=== PATIENT | female | born 1945 | race Hispanic/Latino ===

== ENCOUNTER 2018-05-19 12:58 | Emergency (ER) | payer OTHER ==
[2018-05-19 13:56] LABS: Absolute Lymphocytes (CBC) 0.9 K/uL (0.7-4.9); Absolute Monocytes 0.3 K/uL (0.1-1.3); Absolute Neutrophil 5.1 K/uL (1.8-8.0); Basophils % 0.4 % (0-1.3); Eosinophils % 1.5 % (0-4.4); Hematocrit 27.8 % (36.0-45.0); Lymphocytes % 14.1 % (15.3-44.8); MCH 29.8 pg (27.0-35.0); MCV 90.1 fL (80-100); MPV 7.9 fL (7.6-11.3); RBC Red Blood Cell Count 3.09 M/uL (3.86-4.86)
[2018-05-19 14:05] LABS: Protime INR 1.04
[2018-05-19 14:17] LABS: ALT/SGPT 14 U/L (12-78); AST/SGOT 17 U/L (15-37); Albumin 3.3 g/dL (3.4-5.0); Alkaline Phosphatase 101 U/L (45-117); BUN Blood Urea Nitrogen 33 mg/dL (7-18); Bicarbonate 31 mmol/L (21-32); Bilirubin Direct 0.1 mg/dL (0-0.2); Bilirubin Total 0.3 mg/dL (0.2-1.0); CKMB Creatine Kinase MB < 1.0 ng/mL (0.3-3.6); Creatine Phosphokinase 67 U/L (26-192); Glucose Level 163 mg/dL (74-106); Magnesium 1.9 mg/dL (1.8-2.4); NT PRO-BNP 1529 pg/mL (<125); Potassium 4.3 mmol/L (3.5-5.1); Protein, Total 7.3 g/dL (6.4-8.2); Sodium Level 142 mmol/L (136-145)
--- NOTE | 2018-05-19 14:31 | RAD REPORT ---
EXAM DESCRIPTION: Cristopher Single View05/19/2018 2:02 pm CLINICAL HISTORY: Chest pain COMPARISON: none FINDINGS: The lungs appear clear of acute infiltrate. The heart is borderline enlarged IMPRESSION: No acute abnormalities displayed
--- NOTE | 2018-05-19 14:39 | EKG ---
Test Date: 2018-05-19 Test Time: 13:50:09 Biological Technical Officer: LUCERO MEASUREMENT RESULTS: Intervals: Rate: 92 SD: 206 QRSD: 90 QT: 378 QTc: 467 [place]: P: 61 SD: 206 QRS: 0 T: 46 INTERPRETIVE STATEMENTS: Normal sinus rhythm Normal ECG No previous ECG available for comparison Electronically Signed On 05-19-18 14:39:16 CDT by Domo Arnold
--- NOTE | 2018-05-19 16:26 | EDPHYS ---
Physician Documentation [facility] Name: Oneyda Ely Age: 72 yrs Sex: Female : 1945 Arrival Date: 05/19/2018 Time: 12:59 Bed 14 Private MD: ED Physician Rigoberto Tomlinson HPI: 05/19 14:44 This 72 yrs old Female presents to ER via EMS with complaints of Chest Pain > jr8 32 y/o. 14:44 The patient or guardian reports chest pain that is located primarily in the substernal jr8 area. Onset: acutely, today. The pain does not radiate. Associated signs and symptoms: The patient has no apparent associated signs or symptoms. The chest pain is described as a pressure. Duration: The patient or guardian reports a single episode, that is now resolved. Modifying factors: The symptoms are alleviated by nothing. the symptoms are aggravated by nothing. Severity of pain: At its worst the pain was moderate in the emergency department the pain has resolved. The patient has not experienced similar symptoms in the past. The patient has been recently seen by a physician:. Patient had outpatient endoscopy today. Post procedure after waking up had complained of chest pain. Patient feels better now. History of [facility] with stents in past . Historical: - Allergies: 13:06 Iodine; mb3 - Immunization history:: Adult Immunizations up to date. - Social history:: Smoking status: Patient/guardian denies using tobacco, the patient reports quitting approximately 3 years ago. - Ebola Screening: : Patient denies travel to an Ebola-affected area in the 21 days before illness onset No symptoms or risks identified at this time. ROS: 14:44 Eyes: Negative for injury, pain, redness, and discharge, ENT: Negative for injury, jr8 pain, and discharge, Neck: Negative for injury, pain, and swelling, Respiratory: Negative for shortness of breath, cough, wheezing, and pleuritic chest pain, Abdomen/GI: Negative for abdominal pain, nausea, vomiting, diarrhea, and constipation, Back: Negative for injury and pain, MS/Extremity: Negative for injury and deformity, Skin: Negative for injury, rash, and discoloration, Neuro: Negative for headache, weakness, numbness, tingling, and seizure. 14:44 Cardiovascular: Positive for chest pain, Negative for edema, orthopnea, palpitations, paroxysmal nocturnal dyspnea. Exam: 14:44 Eyes: Pupils equal round and reactive to light, extra-ocular motions intact. Lids and jr8 lashes normal. Conjunctiva and sclera are non-icteric and not injected. Cornea within normal limits. Periorbital areas with no swelling, redness, or edema. ENT: Nares patent. No nasal discharge, no septal abnormalities noted. Tympanic membranes are normal and external auditory canals are clear. Oropharynx with no redness, swelling, or masses, exudates, or evidence of obstruction, uvula midline. Mucous membranes moist. Neck: Trachea midline, no thyromegaly or masses palpated, and no cervical lymphadenopathy. Supple, full range of motion without nuchal rigidity, or vertebral point tenderness. No Meningismus. Cardiovascular: Regular rate and rhythm with a normal S1 and S2. No gallops, murmurs, or rubs. Normal PMI, no JVD. No pulse deficits. Respiratory: Lungs have equal breath sounds bilaterally, clear to auscultation and percussion. No rales, rhonchi or wheezes noted. No increased work of breathing, no retractions or nasal flaring. Abdomen/GI: Soft, non-tender, with normal bowel sounds. No distension or tympany. No guarding or rebound. No evidence of tenderness throughout. Back: No spinal tenderness. No costovertebral tenderness. Full range of motion. Skin: Warm, dry with normal turgor. Normal color with no rashes, no lesions, and no evidence of cellulitis. MS/ Extremity: Pulses equal, no cyanosis. Neurovascular intact. Full, normal range of motion. Neuro: Awake and alert, GCS 15, oriented to person, place, time, and situation. Cranial nerves II-XII grossly intact. Motor strength 5/5 in all extremities. Sensory grossly intact. Cerebellar exam normal. Normal gait. Vital Signs: 13:10 BP 178 / 69; Pulse 92; Resp 18; Temp 96.8; Pulse Ox 96% on R/A; Weight 55.34 kg; Height mb3 5 ft. 1 in. (154.94 cm); Pain 0/10; 13:50 BP 164 / 57; Pulse 97; Resp 18; Pulse Ox 100% on R/A; mb3 15:40 BP 156 / 61; Pulse 93; Resp 18; Pulse Ox 100% on R/A; mb3 16:46 BP 156 / 60; Pulse 94; Resp 18; Pulse Ox 94% on R/A; mb3 13:10 Body Mass Index 23.05 (55.34 kg, 154.94 cm) mb3 MDM: 13:41 Patient medically screened. jr8 14:44 Differential diagnosis: acute myocardial infarction, acute pericarditis, chest wall jr8 pain, esophagitis, gastroesophageal reflux disease (GERD), Fe-Meier syndrome, pancreatitis, pneumonia, pneumothorax, pulmonary embolus, thoracic aortic disection, perforated esophagus. Data reviewed: vital signs, nurses notes, lab test result(s), EKG, radiologic studies, plain films. 16:24 Counseling: I had a detailed discussion with the patient and/or guardian regarding: the jr8 historical points, exam findings, and any diagnostic results supporting the discharge/admit diagnosis, lab results, radiology results, the need for outpatient follow up, a family practitioner, to return to the emergency department if symptoms worsen or persist or if there are any questions or concerns that arise at home. ED course: Patient still remains chest pain free. Second troponin negative. Will send home to f/u with PCP . 05/19 13:33 Order name: Basic Metabolic Panel; Complete Time: 14:37 w 05/19 13:33 Order name: CBC with Diff; Complete Time: 14:06 w 05/19 13:33 Order name: Ckmb; Complete Time: 14:37 w 05/19 13:33 Order name: CPK; Complete Time: 14:37 snw 05/19 13:33 Order name: LFT's; Complete Time: 14:37 w 05/19 13:33 Order name: Magnesium; Complete Time: 14:37 snw 05/19 13:33 Order name: NT PRO-BNP; Complete Time: 14:37 snw 05/19 13:33 Order name: PT-INR; Complete Time: 14:37 snw 05/19 13:33 Order name: Ptt, Activated; Complete Time: 14:37 snw 05/19 13:33 Order name: Troponin (emerg Dept Use Only); Complete Time: 14:37 snw 05/19 13:33 Order name: Procalcitonin; Complete Time: 14:37 snw 05/19 13:33 Order name: Lactate; Complete Time: 14:37 snw 05/19 13:33 Order name: Blood Culture Adult (2) [facility] 05/19 15:40 Order name: Troponin (emerg Dept Use Only); Complete Time: 16:24 05/19 13:33 Order name: XRAY Chest (1 view); Complete Time: 14:37 [facility] 05/19 13:33 Order name: EKG; Complete Time: 13:33 [facility] 05/19 13:33 Order name: Cardiac monitoring; Complete Time: 13:36 [facility] 05/19 13:33 Order name: EKG - Nurse/Tech; Complete Time: 13:49 [facility] 05/19 13:33 Order name: IV Saline Lock; Complete Time: 13:36 [facility] 05/19 13:33 Order name: Labs collected and sent; Complete Time: 13:36 [facility] 05/19 13:33 Order name: O2 Per Protocol; Complete Time: 13:35 [facility] 05/19 13:33 Order name: O2 Sat Monitoring; Complete Time: 13:35 [facility] 05/19 13:33 Order name: Urine Dipstick-Ancillary (obtain specimen) 05/19 13:33 Order name: VS Recheck: q 30 min; Complete Time: 13:35 snw Administered Medications: No medications were administered Disposition: 05/20 09:44 Co-signature as Attending Physician, Rigoberto Tomlinson MD I agree with the assessment and renae plan of care. Disposition: 05/19/18 16:25 Discharged to Home. Impression: Chest pain, unspecified. - Condition is Stable. - Discharge Instructions: Nonspecific Chest Pain. - Medication Reconciliation Form, Thank You Letter, Antibiotic Education, Prescription Opioid Use form. - Follow up: Private Physician; When: 1 - 2 days; Reason: If symptoms return, Recheck today's complaints, Continuance of care, Re-evaluation by your physician. - Problem is new. - Symptoms are resolved. Signatures: Dispatcher [employer] Rigoberto Tran MD MD cha Therrien, Shelly, CADASTRAL ENGINEER-C CADASTRAL ENGINEER-Csnw Victor Hugo Thomas PA PA jr8 Yifan Rogel, JERI RN mb3 Corrections: (The following items were deleted from the chart) 05/19 16:47 16:25 05/19/2018 16:25 Discharged to Home. Impression: Chest pain, unspecified. mb3 Condition is Stable. Forms are Medication Reconciliation Form, Thank You Letter, Antibiotic Education, Prescription Opioid Use. Follow up: Private Physician; When: 1 - 2 days; Reason: If symptoms return, Recheck today's complaints, Continuance of care, Re-evaluation by your physician. Problem is new. Symptoms are resolved. jr8
--- NOTE | 2018-05-19 16:26 | ER ---
Nurse's Notes [facility] Name: Oneyda Ely Age: 72 yrs Sex: Female : 1945 Arrival Date: 05/19/2018 Time: 12:59 Bed 14 Private MD: Diagnosis: Chest pain, unspecified Presentation: 05/19 13:00 Presenting complaint: EMS states: Brought in from next door, pt had endoscopy and was mb3 in recovery. Started having chest pain, ems was called and brought pt here. During the endoscopy pt was given labelalol, esmolol, levaquin, solumedrol and morphine during procedure. had some vital sign problems and was given epi also. EMS adm nitro SL on the way here. Transition of care: patient was received from another setting of care (ambulatory specialty care practice). Onset of symptoms was May 19, 2018 at 12:00. Risk Assessment: Do you want to hurt yourself or someone else? Patient reports no desire to harm self or others. Initial Sepsis Screen: Does the patient meet any 2 criteria? No. Patient's initial sepsis screen is negative. Does the patient have a suspected source of infection? No. Patient's initial sepsis screen is negative. Care prior to arrival: Medication(s) given: ASA, 81 mg, x 1, Nitroglycerin, 0.4 mg SL Labetalol 20 mg, Esmolol 40mg, Levaquin 500 mg, solumedrol 20 mg iv, morphine 4 mg IV, IV initiated. 22 GA, in the right antecubital area, Oxygen administered. via nasal cannula. 13:00 Method Of Arrival: EMS: [facility] mb3 13:00 Acuity: GRISELDA 3 mb3 Triage Assessment: 13:07 General: Appears in no apparent distress. comfortable, Behavior is calm, cooperative, mb3 appropriate for age. Pain: Denies pain. EENT: No signs and/or symptoms were reported regarding the EENT system. Neuro: No deficits noted. Level of Consciousness is awake, alert, obeys commands, Oriented to person, place, time, situation, Appropriate for age. Cardiovascular: Reports Did have chest pain but it has subsided at this time. Heart tones present Capillary refill < 3 seconds Patient's skin is warm and dry. Pulses are all present. Rhythm is sinus rhythm. Respiratory: Airway is patent Respiratory effort is even, unlabored, Respiratory pattern is regular, Breath sounds are clear bilaterally. GI: No signs and/or symptoms were reported involving the gastrointestinal system. : No signs and/or symptoms were reported regarding the genitourinary system. Derm: No signs and/or symptoms reported regarding the dermatologic system. Musculoskeletal: No deficits noted. No signs and/or symptoms reported regarding the musculoskeletal system. Historical: - Allergies: 13:06 Iodine; mb3 - Immunization history:: Adult Immunizations up to date. - Social history:: Smoking status: Patient/guardian denies using tobacco, the patient reports quitting approximately 3 years ago. - Ebola Screening: : Patient denies travel to an Ebola-affected area in the 21 days before illness onset No symptoms or risks identified at this time. Screenin:53 Abuse screen: Denies threats or abuse. Nutritional screening: No deficits noted. mb3 Tuberculosis screening: No symptoms or risk factors identified. Fall Risk None identified. Assessment: 13:50 Reassessment: see triage assessment. General: Appears in no apparent distress. mb3 comfortable, Behavior is calm, cooperative, appropriate for age. Pain: Denies pain. Pain does not radiate. Pain began 2 hours ago. 15:40 Reassessment: Patient appears in no apparent distress at this time. Patient and/or mb3 family updated on plan of care and expected duration. Pain level reassessed. Patient is alert, oriented x 3, equal unlabored respirations, skin warm/dry/pink. Patient denies pain at this time. Vital Signs: 13:10 BP 178 / 69; Pulse 92; Resp 18; Temp 96.8; Pulse Ox 96% on R/A; Weight 55.34 kg; Height mb3 5 ft. 1 in. (154.94 cm); Pain 0/10; 13:50 BP 164 / 57; Pulse 97; Resp 18; Pulse Ox 100% on R/A; mb3 15:40 BP 156 / 61; Pulse 93; Resp 18; Pulse Ox 100% on R/A; mb3 16:46 BP 156 / 60; Pulse 94; Resp 18; Pulse Ox 94% on R/A; mb3 13:10 Body Mass Index 23.05 (55.34 kg, 154.94 cm) mb3 ED Course: 12:59 Patient arrived in ED. mb3 13:00 Yifan Rogel, RN is Primary Nurse. mb3 13:06 Triage completed. mb3 13:32 Initial lab(s) drawn, by me, held in ED. Maintain EMS IV. Dressing intact. mh5 13:32 Patient has correct armband on for positive identification. Placed in gown. Bed in low mh5 position. Call light in reach. Side rails up X2. Adult w/ patient. electric tripper machine operator on. Pulse ox on. NIBP on. 13:41 Victor Hugo Thomas PA is PHCP. jr8 13:41 Rigoberto Tomlinson MD is Attending Physician. jr8 13:49 XRAY Chest (1 view) Sent. mb3 13:57 No provider procedures requiring assistance completed. Patient maintains SpO2 mb3 saturation greater than 95% on room air. 13:58 X-ray completed. Portable x-ray completed in exam room. Patient tolerated procedure jb2 well. 14:00 XRAY Chest (1 view) In Process Unspecified. EDMS 14:00 First set of blood cultures drawn by me, Second set of blood cultures drawn by me. 5 14:09 Blood Culture Adult (2) Sent. mh5 14:09 Lactate Sent. mh5 14:09 Procalcitonin Sent. mh5 14:09 Basic Metabolic Panel Sent. mh5 14:09 Ckmb Sent. mh5 14:09 CPK Sent. mh5 14:09 LFT's Sent. mh5 14:10 Magnesium Sent. mh5 14:10 NT PRO-BNP Sent. mh5 14:10 Troponin (emerg Dept Use Only) Sent. mh5 14:10 Inserted saline lock: 20 gauge in left antecubital area, using aseptic technique. Blood 5 collected. 14:11 Blood Culture Adult (2) Sent. mh5 15:56 Initial lab(s) drawn, Repeat lab(s) drawn. by me, sent to lab. mh5 16:45 IV discontinued, intact, bleeding controlled, No redness/swelling at site. Pressure mb3 dressing applied, x2. 16:46 Arm band placed on. mb3 Administered Medications: No medications were administered Outcome: 16:25 Discharge ordered by . jr8 16:45 Discharged to home ambulatory, with family. mb3 16:45 Condition: stable 16:45 Discharge instructions given to patient, Instructed on discharge instructions, follow up and referral plans. Demonstrated understanding of instructions, follow-up care. 16:47 Patient left the ED. mb3 Signatures: Dispatcher [employer] EDRei Marti2 Victor Hugo Thomas PA PA jr8 Araceli Man 5 Yifan Rogel RN RN mb3
== END 2018-05-19 16:47 | disposition home or self-care (01) ==
LOC: ER 12:58
DX: R07.9 Chest pain, unspecified (principal); Z88.8 Allergy status to other drugs, medicaments and biological substances
CPT/HCPCS: 36415; 71045; 80048; 80076; 82550; 82553; 83605; 83735; 83880; 84145; 84484; 85025; 85610; 85730; 87040; 93005; 99285